=== PATIENT | male | born 1985 | race Two or more races ===

== ENCOUNTER 2024-07-06 23:22 | Emergency (ER) | payer MEDICAID, SELFPAY ==
[2024-07-06 23:24] VITALS: BMI 36.4
[2024-07-07 00:24] VITALS: BP 147/99; PULSE 91; RESP 18; TEMP 37.2; O2SAT 96
--- NOTE | 2024-07-07 00:42 | XR_ITS ---
Examination: CT brain head without contrast. 2-D sagittal coronal reconstructions Date and time of exam:July 07, 2024 0050 hours INDICATIONS: Patient fell 2 days ago, hitting forehead, head pain CTDI: vol (mGy):53.4 DLP: (mGycm):1106 Technique: Multiple CT axial sections of the brain have been obtained, 5 mm slice thickness. Contrast has not been administered. 2-D sagittal, coronal reconstructions have been obtained Low dose protocols were performed. One or more of the following dose reduction techniques were used; automated exposure control, adjustment of the mA and/or KV according to patient size, use of iterative reconstruction technique. Findings: No significant ventricular enlargement. Intra-axial or extra-axial hemorrhage density is not seen. No mass effect or midline shift Basal cisterns are not remarkable. Fourth ventricle is midline. Cranial vault intact. Impression: Negative for acute hemorrhage, mass effect or midline shift
--- NOTE | 2024-07-07 00:42 | XR_ITS ---
Examination: CT maxillofacial, without intravenous contrast. 2-D sagittal reconstructions. 3-D reconstructions. Date and time of exam:July 07, 2024 0050 hours INDICATIONS: Patient fell 2 days ago with injury to the forehead, facial pain CTDI: vol (mGy):19.2 DLP: (mGycm):401 Technique: Multiple axial images of maxillofacial region, 3.0 mm slice thickness. 2-D sagittal and coronal reconstructions. 3-D reconstructions. Low dose protocols were performed. One or more of the following dose reduction techniques were used; automated exposure control, adjustment of the mA and/or KV according to patient size, use of iterative reconstruction technique. Findings: Frontal bone frontal sinuses intact No nasal bone fracture Orbital rims intact No depression zygomatic arches Pterygoid plates maxilla and the mandible is intact Minimal right periorbital soft tissue swelling The optic globes are intact IMPRESSION: No acute facial fracture.
--- NOTE | 2024-07-07 00:42 | XR_ITS ---
Examination: CT cervical spine without contrast 2-D sagittal reconstructions 2-D coronal reconstructions 3-D reconstructions. Exam date and time:July 07, 2024 0050 hours INDICATIONS: Patient fell 2 days ago with injury to the neck, neck pain CTDI:vol (mGy) 13.9 DLP: (mGycm) 327 Technique: Multiple 2 mm axial sections of the cervical spine have been obtained. The coronal and sagittal reconstructions have been obtained. 3-D reconstructions have been obtained. Low dose protocols were performed. One or more of the following dose reduction techniques were used; automated exposure control, adjustment of the mA and/or KV according to patient size, use of iterative reconstruction technique. Findings: Axial sections demonstrate intact base of the skull. C1 exhibit satisfactory relationship to the odontoid. No acute cervical vertebral body fracture seen. Alignment posterior spinous processes satisfactory. Reversal normal cervical lordosis Moderate degenerative disc disease C5-C6 C6-C7 Impression: No acute cervical fracture.
--- NOTE | 2024-07-07 02:28 | PRELIM_ITS ---
CT scan of the head without intravenous contrast (axial sections with sagittal and coronal reformats) July 07, 2024 0050 hours Clinical History: Fall while intoxicated No prior study is available for comparison. Findings: No evidence of intracranial hemorrhage, mass effect or midline shift. The ventricles and CSF spaces are unremarkable. The calvarium is intact. There is a small retention cyst or polyp in the right maxillary sinus. The mastoid air cells and otherwise visualized paranasal sinuses are clear. There is mild soft tissue swelling in the right frontal scalp. Impression: No evidence of intracranial hemorrhage, midline shift or calvarial fracture. Mild soft tissue swelling in the right frontal scalp. Report on Maxillofacial CT to follow. Report Electronically Signed By: Artie Jaramillo 07/07/2024 2:28:01 AM [EST]
--- NOTE | 2024-07-07 02:30 | PRELIM_ITS ---
CT scan of the cervical spine without intravenous contrast (axial sections with sagittal and coronal reformats) July 07, 2024 0050 hours Clinical History: Fall while intoxicated No prior study is available for comparison. Findings: There is no fracture or subluxation. There is reversal of the cervical lordosis, which may be due to muscle spasm or patient position. Mild degenerative changes in the cervical spine are noted at C5-C6 and C6-C7. The prevertebral soft tissues are unremarkable. Small nodules are noted in enlarged right lobe of the thyroid. Impression: No evidence of fracture or subluxation. Other findings as described above. Report Electronically Signed By: Artie Jaramillo 07/07/2024 2:30:26 AM [EST]
--- NOTE | 2024-07-07 02:36 | PRELIM_ITS ---
CT maxillofacial without intravenous contrast (axial sections with sagittal and coronal reformats). July 07, 2024 0050 hours Clinical History: Fall while intoxicated Findings: There is no fracture. The maxillary sinus and orbital blood are intact. No fluid levels are seen. No evidence of intraorbital hematoma, proptosis, globe injury or radiodense foreign body. The zygomatic arches and mandible are intact. There is a small retention cyst or polyp in the right maxillary sinus. There is mild soft tissue swelling in the right periorbital region. Impression: No maxillofacial fracture. Mild soft tissue swelling in the right periorbital region. Report on Head CT to follow. Report Electronically Signed By: Artie Jaramillo 07/07/2024 2:36:24 AM [EST]
[2024-07-07 02:59] VITALS: BP 150/99; PULSE 85; RESP 17; TEMP 37.1; O2SAT 99
--- NOTE | 2024-07-07 05:26 | EDNOTE_ITS ---
<Statement entered by Yulissa Barrientos MD - 07/08/24 04:33> As co-signing physician, I was present and available for consult prn. I concur with the plan and care as documented by the midlevel provider. ED Head Injury RME/HPI General Chief complaint: Dizziness Stated complaint: DIZZINESS SINCE TUESDAY AFTER FALL Time Seen by Provider: 07/07/24 00:42 Arrival date/time: 07/06/24 23:22 38M with no significant PMH presents to ED with dizziness after he fell several days ago and hit his head/face. Patient had been drinking. Possible LOC. Patient denies vision changes. Limitations: no limitations Related Data Allergies Allergy/AdvReac Type Severity Reaction Status Date / Time amoxicillin Allergy Intermediate PRESSURE Verified 07/06/24 23:23 TO CHEST codeine Allergy Intermediate ANXIOUS/RAPID Verified 07/06/24 23:23 HR Review of Systems Review of Systems Systems Reviewed: All systems reviewed, normal except as documented Constitutional Constitutional: Reports system reviewed and no additional complaints, except as documented, Denies fever(s) and Denies headache(s) ENT Ears, Nose, Mouth, and Throat: Reports as per HPI, Denies disequilibrium, Denies headache(s) and Reports vertigo Cardiovascular Cardiovascular: Reports system reviewed and no additional complaints, except as documented, Denies chest pain and Denies dyspnea Respiratory Respiratory: Reports system reviewed and no additional complaints, except as documented, Denies cough and Denies dyspnea Gastrointestinal Gastrointestinal: Reports system reviewed and no additional complaints, except as documented, Denies abdominal pain, Denies nausea and Denies vomiting Neurologic Neurologic: Reports system reviewed and no additional complaints, except as documented, Denies confusion, Denies disequilibrium, Denies headache(s) and Reports vertigo Psychiatric Psychiatric: Denies confusion Past Medical History Social History SMOKING STATUS: Former smoker ED Exam General Limitations: Present no limitations General appearance: Present alert and in no apparent distress Expanded Head Exam Head exam physical: Present hematoma (face/head) Eye Eye exam: Present PERRL, EOMI and conjunctival injection (R subconjunctival hemorrhage) ENT ENT exam: Present normal exam, normal oropharynx and mucous membranes moist Neck Neck exam: Present normal inspection, full ROM and trachea midline Chest Chest inspection: Present normal inspection and symmetric chest wall rise Respiratory Respiratory exam: Present normal lung sounds bilaterally Cardiovascular Cardiovascular exam: Present regular rate, normal rhythm and normal heart sounds Abdominal Exam Abdominal exam: Present soft and normal bowel sounds Extremities Exam Extremities exam: Present normal inspection and full ROM Back Exam Back exam: Present normal inspection and full ROM Neurological Exam Neurological exam: Present alert, oriented X3 and CN II-XII intact Psychiatric Psychiatric exam: Present normal affect and normal mood Skin Skin exam: Present warm, dry, intact and normal color Course Quality Measures none Orders Category Date Time Status CT cervical spine wo con Stat Exams 07/07/24 00:[address] facial bones wo con Stat Exams 07/07/24 00:[address] head/brain wo con Stat Exams 07/07/24 00:42 Taken Vital Signs Vital signs: Vital Signs Temperature 98.9 F 07/07/24 00:24 Pulse Rate 91 07/07/24 00:24 Respiratory Rate 18 07/07/24 00:24 Blood Pressure 147/99 H 07/07/24 00:24 Pulse Oximetry (%) 96 07/07/24 00:24 Oxygen Delivery Method Room Air 07/07/24 00:24 O2 at 96% on RA and WNLs Head Injury MDM Narrative MDM Narrative:: 38M with no significant PMH presents to ED with dizziness after he fell several days ago and hit his head/face. Patient had been drinking. Possible LOC. Patient denies vision changes. Physical exam reveals hematoma on face and scalp. R suboncjunctival hemorrhage, but normal pupil response and EOM. Patient is afebrile, calm, and alert. CT unremarkable. Patient data External records reviewed:: [facility] previous records Clinical information provided by:: patient Social determinants that could affect healthcare access:: alcohol use Patient has the following chronic illnesses:: none How is presenting disease/condition affected by chronic disease/condition?: no chronic disease Evaluation data The following diagnostics were reviewed and interpreted by me:: radiology exam(s) Lab and/or radiology exams considered but not ordered:: ordered Interpretation Summary: above Medications / Prescriptions Medications or Prescriptions considered but not ordered:: not ordered Medication administrations:: n/a Consultations Consultation(s) initiated? (list below): No Diagnosis Differential diagnosis head injury: concussion without loss of consciousness, epidural hematoma, closed head injury, subarachnoid hematoma, postconcussion syndrome, subdural hematoma, concussion with loss of consciousness and other (c ontusion of soft tissue and subconjunctival hemorrhage) Most likely diagnosis given after review of the tests above:: contusion of soft tissue and subconjunctival hemorrhage Admission Indicated Admission indicated?: not indicated Admission Request Was there a request for admission?: No Disposition Plan Disposition Plan: Discharge Discharge Attestation Discharge Attestation: The patient and all family members were given an opportunity to ask questions and understood the discharge instructions. Discharge instructions specifically effects, indications for sooner follow up or return to the emergency department, and the expected course of current diagnosis. Patient condition: Stable Discharge Plan Plan Patient Disposition: HOME (Self Care) Discharge Disposition comment: Stable Prescriptions/Referrals Referrals: Carmela ([facility]),DRU Dupont [Primary Care Provider] - In 1 week Problem List Clinical Impression: Contusion of soft tissue, Subconjunctival hemorrhage Patient/Caregiver Discharge Instructions Education Materials: ED Facial Contusion, ED Head Injury (Adult), ED Subconjunctival Hemorrhage Additional Instructions: Please follow-up with PCP within 24-48 hours and return immediately if symptoms worsen. Print Language: [place] Stand Alone Forms: Patient Portal Info Letter RIGOBERTO Supervising Physician RIGOBERTO Supervising Physician: Dr. Barrientos
== END 2024-07-07 03:38 | disposition home or self-care (01) ==
PROVIDERS: Emergency Provider Emergency Medicine; PCP Nurse Practitioner Primary Care
DX: S00.83XA Contusion of other part of head, initial encounter (principal); H11.31 Conjunctival hemorrhage, right eye
CPT/HCPCS: 70450; 70486; 72125; 99284

== ENCOUNTER → 2024-08-15 | Outpatient (CLI) | payer MEDICAID, SELFPAY ==
--- NOTE | 2024-08-15 14:00 | XR_ITS ---
Examination: CT brain head without contrast. 2-D sagittal coronal reconstructions Date and time of exam:August 15, 2024 1422 hours INDICATIONS: Patient fell 2 months ago with injury to the head, head pain COMPARISON: July 07, 2024 CTDI: vol (mGy):54 DLP: (mGycm):1134 Technique: Multiple CT axial sections of the brain have been obtained, 5 mm slice thickness. Contrast has not been administered. 2-D sagittal, coronal reconstructions have been obtained Low dose protocols were performed. One or more of the following dose reduction techniques were used; automated exposure control, adjustment of the mA and/or KV according to patient size, use of iterative reconstruction technique. Findings: No significant ventricular enlargement. Intra-axial or extra-axial hemorrhage density is not seen. No mass effect or midline shift Basal cisterns are not remarkable. Fourth ventricle is midline. Cranial vault intact. Impression: Negative for acute hemorrhage, mass effect or midline shift
== END | disposition home or self-care (01) ==
PROVIDERS: Referring Provider Registered Nurse Pediatrics; Visit Provider Registered Nurse Pediatrics
DX: R51.9 Headache, unspecified (principal); W10.9XXA Fall (on) (from) unspecified stairs and steps, initial encounter
CPT/HCPCS: 70450